=== PATIENT | female | born 1975 | race Two or more races ===

== ENCOUNTER 2025-03-12 17:17 | Emergency (ER) | payer MEDICAID, OTHER ==
[~2025-03-12] VITALS: Ht 154.9 cm; Wt 92.0 kg
--- NOTE | 2025-03-12 18:55 | ED.PDOC ---
Anastasia. trauma (HPI) HPI Comments 50 year old female presents to the ED with a chief complaint of head injury s/p fall onset last night. Patient was on the 4th step of a 6 ft ladder, when she slipped, fell and landed on her back. Shortly after falling patient began experiencing dizziness, nausea/vomiting, neck pain, upper back pain, LT shoulder and LT wrist pain. Patient took Tylenol for pain with no improvement of symptoms. Rates headache 10/10, experienced an episode of nausea/vomiting upon ED arrival. Denies any LOC, chest pain, shortness of breath, diarrhea, abdominal pain, blurry vision. No other symptoms or modifying factors present at this time. Chief Complaint: Head Injury Time Seen by MD: 18:35 Primary Care Provider: PRUDENCE Reviewed notes: Medications, Allergies Allergies: Coded Allergies: NO KNOWN ALLERGIES (Unverified , 03/12/25) Information Source: Patient Mode of Arrival: Ambulatory Severity: Moderate Timing: Days Duration: Since onset Prehospital treatment: Pain Meds Location: Back, Neck, (L) Shoulder, (L) Wrist Location of laceration: None Mechanism: Fall Associated signs and symtoms: Headache Past Medical History PAST MEDICAL HISTORY: Denies Surgical History: Denies all surgeries ICU REGISTERED NURSE History: No Pertinent ICU REGISTERED NURSE History Family History Family History: Reviewed,noncontributory to illness, No family hx of Cancer, No family hx of DM, No family hx of Heart avelino, No family hx of HTN, No family hx ofKidney avelino, No family hx of Liver avelino, No family hx of Lung avelino, No family hx of Stroke Social History Smoker: Non-Smoker Alcohol: Denies ETOH Use Drugs: Denies Drug Use Lives In: Home Constitutional: denies: chills, diaphoresis, fatigue, fever, malaise, sweats, weakness, others EENTM: denies: blurred vision, double vision, ear bleeding, ear discharge, ear drainage, ear pain, ear ringing, eye pain, eye redness, hearing loss, mouth pain, mouth swelling, nasal discharge, nose bleeding, nose congestion, nose pain, photophobia, tearing, throat pain, throat swelling, voice changes, others Respiratory: denies: cough, hemoptysis, orthopnea, SOB at rest, shortness of breath, SOB with excertion, stridor, wheezing, others Cardiovascular: denies: chest pain, dizzy spells, diaphoresis, Dyspnea on exertion, edema, irregular heart beat, left arm pain, lightheadedness, palpitations, PND, syncope, others Gastrointestinal: reports: nausea, vomiting; denies: abdomen distended, abdominal pain, blood streaked bowels, constipated, diarrhea, dysphagia, difficulty swallowing, hematemesis, melena, poor appetite, poor fluid intake, rectal bleeding, rectal pain, others Genitourinary: denies: abnormal vagina bleeding, burning, dyspareunia, dysuria, flank pain, frequency, hematuria, incontinence, pain, , vagina discharge, urgency, others Neurological: reports: dizziness, headache; denies: fainting, left sided numbness, left sided weakness, numbness, paresthesia, pre-existing deficit, right sided numbness, right sided weakness, seizure, speech problems, tingling, tremors, weakness, others Musculoskeletal: reports: back pain, neck pain, others (LT wrist pain); denies: gout, joint pain, joint swelling, muscle pain, muscle stiffness Integumetry: denies: bruises, change in color, change in hair/nails, dryness, laceration, lesions, lumps, rash, wounds, others Allergic/Immunocompromised: denies: Difficulty Healing, Frequent Infections, Hives, Itching, others Hematologic/Lymphatic: denies: anemia, blood clots, easy bleeding, easy bruising, swollen glands, others Endocrine: denies: excessive hunger, excessive sweating, excessive thirst, excessive urination, flushing, intolerance to cold, intolerance to heat, unexplained weight gain, unexplained weight loss, others Psychiatric: denies: anxiety, bipolar disorder, depression, hopeless, panic disorder, schizophrenia, sleepless, suicidal, others All Other Systems: Reviewed and Negative Physical Exam General Appearance: No Apparent Distress, Normal HEENT: Normal ENT Inspection, Pharynx Normal, TMs Normal Neck: Full Range of Motion, Non-Tender, Normal, Normal Inspection Respiratory: Chest Non-Tender, Lungs Clear, No Accessory Muscle Use, No Respiratory Distress, Normal Breath Sounds Cardiovascular: No Edema, No JVD, No Murmur, No Gallop, Normal Peripheral Pulses, Regular Rate/Rhythm Breast Exam: Deferred Gastrointestinal: No Organomegaly, Non Tender, No Pulsatile Mass, Normal Bowel Sounds, Soft Genitalia: Deferred Pelvic: Deferred Rectal: Deferred Extremities: No calf tenderness, Normal capillary refill, Normal inspection, Normal range of motion, Non-tender, No pedal edema Musculoskeletal : Apperance: Normal Neurologic: Alert, stove mechanic II-XII nml as Tested, No Motor Deficits, Normal Affect, Normal Mood, No Sensory Deficits Cerebellar Function: Normal Reflexes: Normal Skin: Dry, Normal Color, Warm Lymphatic: No Adenopathy Was a procedure done? Was a procedure done?: No X-Ray, Labs, Meds, VS Vital Signs Date Time Temp Pulse Resp B/P (MAP) Pulse Ox O2 Delivery O2 Flow Rate FiO2 03/12/25 17:47 98.0 81 16 119/74 (89) 98 98.0 [place] [address] Ph: [phone] DIAGNOSTIC IMAGING Diagnostic Imaging Report : [id number] Signed PATIENT: CHINTAN CARPENTERCAITT: [id number] UNIT: [id number] : 1975 LOC: ER ROOM / BED: / AGE / SEX: 50 / F ADM STATUS: REG ER SERVICE 14 ORDERING PHYSICIAN: DHIRAJ MÉNDEZ MD PROCEDURE(s): LWRI - L WRIST 3+ VIEW XRAY REASON: fall off ladder, pain ORDER NUMBER(s): [id number], ACCESSION NUMBER(s): [id number] EXAM: XY L WRIST 3+ VIEW XRAY HISTORY: fall off ladder, pain COMPARISON: None TECHNIQUE: Four views of the left wrist were performed. FINDINGS: No acute fracture or dislocation are identified about the left wrist. No significant degenerative changes. IMPRESSION: 1. No acute fracture of the left wrist. ATED BY: ADRIANO ASH MD DICTATED DATE/TIME: 03/12/251952 SIGNED BY: ADRIANO ASH MD SIGNED DATE/TIME: 03/12/251952 CC: [address] [address] Ph: [phone] DIAGNOSTIC IMAGING Diagnostic Imaging Report : [id number] Signed PATIENT: CHINTAN CARPENTERCAITT: [id number] UNIT: [id number] : 1975 LOC: ER ROOM / BED: / AGE / SEX: 50 / F ADM STATUS: REG ER SERVICE 14 ORDERING PHYSICIAN: DHIRAJ MÉNDEZ MD PROCEDURE(s): LSHD2 - L SHOULDER 2+ VIEW XRAY REASON: fall off ladder, pain ORDER NUMBER(s): [id number], ACCESSION NUMBER(s): [id number] EXAMINATIONS: 3 views of the left shoulder CLINICAL HISTORY: fall off ladder, pain COMPARISON: None Findings and impression: No grossly displaced fractures or dislocations are evident on the provided vie ws. Glenohumeral articulation appears relatively intact. ATED BY: CARMINE DUVALL MD DICTATED DATE/TIME: 03/12/251955 SIGNED BY: CARMINE DUVALL MD SIGNED DATE/TIME: 03/12/251955 CC: [place] [address] Ph: [phone] DIAGNOSTIC IMAGING Diagnostic Imaging Report : [id number] Signed PATIENT: CHINTAN CARPENTERCCT: [id number] UNIT: [id number] : 1975 LOC: ER ROOM / BED: / AGE / SEX: 50 / F ADM STATUS: REG ER SERVICE 14 ORDERING PHYSICIAN: DHIRAJ MÉNDEZ MD PROCEDURE(s): HWOCT - HEAD WITHOUT CONTRAST REASON: fall off ladder / pain ORDER NUMBER(s): [id number], ACCESSION NUMBER(s): [id number] CT HEAD WITHOUT CONTRAST INDICATION: fall off ladder / pain : 50 old Female fall off ladder / pain EXAM DATE: 03/12/2025 07:42 PM COMPARISON: None RADIATION DOSE: CTDIvol: 55.72 mGy, DLP: 1696.68 mGy*cm PROCEDURE: CT scans of the head were obtained from the vertex to the skull base. Sagittal and coronal reconstructions were provided. All CT scans at this medical facility are performed using dose modulation t echniques as appropriate to a performed exam including the following: Automated exposure control was utilized; adjustment of the MA and/or KV according to patient size; and use of iterative reconstruction technique. FINDINGS:: No evidence for atrophy. Pierce-white matter differentiation is normal there is no evidence for stroke or intracranial hemorrhage or shear injury Hippocampal structures are symmetric midline structures are normal. Pituitary Paranasal sinuses mastoid air cells internal auditory canals and middle ears are unremarkable. Calvarium is intact. IMPRESSION: 1. Generally unremarkable study ATED BY: ADRIANO ASH MD DICTATED DATE/TIME: 03/12/252027 SIGNED BY: ADRIANO ASH MD SIGNED DATE/TIME: 03/12/252027 CC: [place] [address] Ph: [phone] DIAGNOSTIC IMAGING Diagnostic Imaging Report : [id number] Signed PATIENT: CHINTAN CARPENTERCCT: [id number] UNIT: [id number] : 1975 LOC: ER ROOM / BED: / AGE / SEX: 50 / F ADM STATUS: REG ER SERVICE 14 ORDERING PHYSICIAN: DHIRAJ MÉNDEZ MD PROCEDURE(s): CS2 - CERVICAL WITHOUT CONTRAST REASON: fall off ladder, pain ORDER NUMBER(s): [id number], ACCESSION NUMBER(s): [id number] EXAM: CT CERVICAL WITHOUT CONTRAST INDICATION: fall off ladder, pain EXAM DATE: 03/12/2025 07:42 PM COMPARISON: None TECHNIQUE: Multiple axial CT images of the cervical spine were obtained using bone algorithm. Axial and coronal reformatting was done. Bone and soft tissue windows were reviewed. Radiation Dose Information: CT Dose: CTDI volume is 24 mGy. Dose-length product is 1697 mGy*cm FINDINGS: The cervical alignment is intact. No acute cervical spine fracture is identifie d. The vertebral body heights are intact. No suspicious osseous lesions are identified. Moderate degenerative changes throughout the cervical spine. There is no prevertebral soft tissue swelling. IMPRESSION: 1. No evidence of acute cervical spine fracture or traumatic malalignment. 2. Moderate degenerative changes throughout the cervical spine. 3. All CT scans at this medical facility are performed using dose modulation techniques as appropriate to a performed exam including the following: Automated exposure control was utilized; adjustment of the MA and/or KV according to patient size; and use of iterative reconstruction technique. ATED BY: HALIMA BRAY MD DICTATED DATE/TIME: 03/12/252044 SIGNED BY: HALIMA BRAY MD SIGNED DATE/TIME: 03/12/252044 CC: Time of 1ST Reevaluation: 19:05 Reevaluation 1ST: Unchanged Patient Education/Counseling: Diagnosis, Treatment, Prognosis Family Education/Counseling: No Family Present Additional Information The following tests were ordered, and results were reviewed by me: CT HEAD WO CONTRAST, CT CERVICAL WO CONTRAST, XY L SHOULDER 2+ VIEW, XY L WRIST 3+ VIEW I reviewed and agreed with the following test results read by other providers: CT HEAD WO CONTRAST, CT CERVICAL WO CONTRAST, XY L SHOULDER 2+ VIEW, XY L WRIST 3+ VIEW I discussed treatment and results with medical personnel and: Patient Comprehensive systems review obtained and negative except for what is stated in the HPI. Departure 1 Departure Time of Disposition: 21:01 Impression: Primary Impression: Cervical sprain Additional Impressions: Head injury, acute Sprain of left shoulder Sprain of left wrist Disposition: 01 HOME / SELF CARE / HOMELESS Condition: Stable Discharged With: Self Critical Care Note Critical Care Time?: No Stability Stability form required: No I personally scribed for DHIRAJ MÉNDEZ MD ([email or web address]) on 03/12/25 at 18:55. Electronically submitted by Lay Damon ([email or web address]). I personally scribed for DHIRAJ MÉNDEZ MD ([email or web address]) on 03/12/25 at 19:10. Electronically submitted by Lay Damon ([email or web address]). I personally scribed for DHIRAJ MÉNDEZ MD ([email or web address]) on 03/12/25 at 20:12. Electronically submitted by Lay Damon ([email or web address]). I personally scribed for DHIRAJ MÉNDEZ MD ([email or web address]) on 03/12/25 at 20:50. Electronically submitted by Lay Damon ([email or web address]). I personally scribed for DHIRAJ MÉNDEZ MD ([email or web address]) on 03/12/25 at 20:51. Electronically submitted by Lay Damon ([email or web address]). DHIRAJ MÉNDEZ MD Mar 12, 2025 18:55
--- NOTE | 2025-03-12 19:55 | DVH ---
EXAM: XY L WRIST 3+ VIEW XRAY HISTORY: fall off ladder, pain COMPARISON: None TECHNIQUE: Four views of the left wrist were performed. FINDINGS: No acute fracture or dislocation are identified about the left wrist. No significant degenerative ch anges. IMPRESSION: 1. No acute fracture of the left wrist.
--- NOTE | 2025-03-12 19:58 | DVH ---
EXAMINATIONS: 3 views of the left shoulder CLINICAL HISTORY: fall off ladder, pain COMPARISON: None Findings and impression: No grossly displaced fractures or dislocations are evident on the provided views. Glenohumeral articu lation appears relatively intact.
--- NOTE | 2025-03-12 20:31 | DVH ---
CT HEAD WITHOUT CONTRAST INDICATION: fall off ladder / pain : 50 old Female fall off ladder / pain EXAM DATE: 03/12/2025 07:42 PM COMPARISON: None RADIATION DOSE: CTDIvol: 55.72 mGy, DLP: 1696.68 mGy*cm PROCEDURE: CT scans of the head were obtained from the vertex to the skull base. Sagittal and coronal reconstructions were provided. All CT scans at this medical facility are performed using dose modulation techniques as appropriate t o a performed exam including the following: Automated exposure control was utilized; adjustment of th e MA and/or KV according to patient size; and use of iterative reconstruction technique. FINDINGS:: No evidence for atrophy. Pierce-white matter differentiation is normal there is no evidence for stroke or intracranial hemorrhage or shear injury Hippocampal structures are symmetric midline structures are normal. Pituitary Paranasal sinuses mastoid air cells internal auditory canals and middle ears are unremarkable. Calvar ium is intact. IMPRESSION: 1. Generally unremarkable study
--- NOTE | 2025-03-12 20:47 | DVH ---
EXAM: CT CERVICAL WITHOUT CONTRAST INDICATION: fall off ladder, pain EXAM DATE: 03/12/2025 07:42 PM COMPARISON: None TECHNIQUE: Multiple axial CT images of the cervical spine were obtained using bone algorithm. Axial a nd coronal reformatting was done. Bone and soft tissue windows were reviewed. Radiation Dose Information: CT Dose: CTDI volume is 24 mGy. Dose-length product is 1697 mGy*cm FINDINGS: The cervical alignment is intact. No acute cervical spine fracture is identified. The vertebral body heights are intact. No suspicious osseous lesions are identified. Moderate degenerative changes throughout the cervical spine. There is no prevertebral soft tissue swelling. IMPRESSION: 1. No evidence of acute cervical spine fracture or traumatic malalignment. 2. Moderate degenerative changes throughout the cervical spine. 3. All CT scans at this medical facility are performed using dose modulation techniques as appropriat e to a performed exam including the following: Automated exposure control was utilized; adjustment of the MA and/or KV according to patient size; and use of iterative reconstruction technique.
[2025-03-12] MEDS: HYDROcodone-ACET 10/325MG TAB PO ONE (21:12)
[2025-03-12 21:17] VITALS: BP 125/89; PULSE 82; RESP 18; TEMP 98.2; O2SAT 98
== END 2025-03-12 21:16 | disposition home or self-care (01) ==
LOC: ER 17:17
DX: S13.4XXA Sprain of ligaments of cervical spine, initial encounter (principal); S63.502A Unspecified sprain of left wrist, initial encounter; S09.8XXA Other specified injuries of head, initial encounter; S43.402A Unspecified sprain of left shoulder joint, initial encounter; W11.XXXA Fall on and from ladder, initial encounter; Y93.89 Activity, other specified; Y92.89 Other specified places as the place of occurrence of the external cause; Y99.8 Other external cause status
CPT/HCPCS: 70450; 72125; 73030; 73110

== ENCOUNTER 2025-09-20 21:54 | Emergency (ER) | payer MEDICAID ==
[~2025-09-20] VITALS: Ht 154.9 cm; Wt 97.5 kg
--- NOTE | 2025-09-20 22:54 | ED.PDOC ---
History of Present Illness HPI Comments 50 y/o morbidly obese F presents with c/c of right foot pain x2 days. Patient reports on onset of pain following a 'pop' sensation she felt in her right foot after walking 2x days ago. No reported recent trauma or injuries. Pertinent history of previous right foot fractures with surgical interventions. Patient also endorses on having left shoulder pain of unknown origin. History blood clots in left arm; off blood thinners she was placed for it for 2x years. No further acute symptoms reported. Chief Complaint: Lower Extremity Time Seen by MD: 22:03 Primary Care Provider: PRUDENCE Reviewed Notes: Nurses Notes, Medications, Allergies Allergies: Coded Allergies: NO KNOWN ALLERGIES (Unverified , 03/12/25) Information Source: Patient Mode of Arrival: Ambulatory Severity: Moderate Timing: Days Duration: Since onset Prehospital treatment: None Past Medical History PAST MEDICAL HISTORY: Denies Surgical History: Denies all surgeries DEBRIDGING MACHINE OPERATOR History: No Pertinent DEBRIDGING MACHINE OPERATOR History Family History Family History: Reviewed,noncontributory to illness, No family hx of Cancer, No family hx of DM, No family hx of Heart avelino, No family hx of HTN, No family hx ofKidney avelino, No family hx of Liver avelino, No family hx of Lung avelino, No family hx of Stroke Social History Smoker: Non-Smoker Alcohol: Denies ETOH Use Drugs: Denies Drug Use Lives In: Home All Other Systems: Reviewed and Negative (Comprehensive review of systems are negative unless stated in HPI) Physical Exam General Appearance: No Apparent Distress, Obese HEENT: Pharynx Normal Neck: Full Range of Motion, Non-Tender Respiratory: Lungs Clear, No Respiratory Distress, Normal Breath Sounds Cardiovascular: No Murmur, Normal Peripheral Pulses, Regular Rate/Rhythm Breast Exam: Deferred Gastrointestinal: Non Tender, Soft Genitalia: Deferred Pelvic: Deferred Rectal: Deferred Extremities: Normal capillary refill, Normal range of motion, No pedal edema Musculoskeletal : Location: Right Extremity Location: Foot (TENDERNESS TRACE EDEMA NOTED OVER DORSUM ASPECT OF RIGHT FOOT POSITIVE PEDAL PULSE STRENGTH SENSORY MOTION INTACT. LEFT SHOULDER WITH MODERATE DISCOMFORT ON PASSIVE RANGE OF MOTION TENDERNESS OVER TIRE SHOP SHOULDER GIRDLE STRENGTH SENSORY MOTION INTACT.) Apperance: Normal Neurologic: Alert, silk top hat body maker II-XII nml as Tested, No Motor Deficits, Normal Affect, Normal Mood, No Sensory Deficits Cerebellar Function: Normal Reflexes: NOT DONE Skin: Dry, Normal Color, Warm Lymphatic: No Adenopathy Was a procedure done? Was a procedure done?: No Differential Dx Considerations may include: fractures, contusions, sprain, musculoskeletal pain, among others X-Ray, Labs, Meds, VS Vital Signs Date Time Temp Pulse Resp B/P (MAP) Pulse Ox O2 Delivery O2 Flow Rate FiO2 09/21/25 00:14 89 19 97 Room Air 09/21/25 00:14 98.1 89 19 106/71 (83) 97 98.1 09/20/25 21:56 97.8 95 16 143/81 97 97.8 Current Medications Medications (Trade) Dose Ordered Sig/Sheldon Route Start Time Stop Time Status Last Admin Acetaminophen/ Hydrocodone Bitart ([place] 5/325MG Tab) 1 tab ONCE ONCE PO 09/21/25 00:00 09/21/25 00:01 DC 09/21/25 00:14 X-Ray, Labs, Meds, VS Comment FINDINGS: No osseous or joint abnormality identified with no fracture or dislocation. Mild joint space narrowing in 1st MTP joint; the remainder of the joints appear unremarkable. Single screw noted in the fibular head. Very small calcaneal spur. IMPRESSION: No evidence of fracture or dislocation PATIENT GIVEN NORCO 5 MG REPORTS IMPROVEMENT IN PAIN REQUESTING DISCHARGE AT THIS TIME. SCRIPT TRIAL OF MUSCLE RELAXER AT SLEEP FOR THE LEFT SHOULDER PAIN ADVISED TO FOLLOW UP WITH AND MAKE REFERRAL WITH PODIATRY CONSIDER REMOVAL OF THE HARDWARE SINCE IT IS LIKELY CAUSING PATIENT'S PAIN. ADVISED TO FOLLOW UP WITH HER PCP IF LEFT SHOULDER PAIN CONTINUES RECOMMEND OUTPATIENT MRI. NO NOTED FRACTURES DISLOCATIONS OR OSSEOUS LESIONS. ADVISED ON RICE. ADVISED ON ER RETURN PRECAUTIONS PATIENT INDICATES UNDERSTANDING AGREES WITH DISCHARGE PLAN OF CARE. Images Reviewed?: Images reviewed and evaluated by me Time of 1ST Reevaluation: 22:30 Reevaluation 1ST: Unchanged Time of 2ND Reevaluation: 00:07 Reevaluation 2ND: Improved Patient Education/Counseling: Diagnosis, Treatment, Need For Follow Up Family Education/Counseling: No Family Present SEPSIS Sepsis Screen Date sepsis recognized/suspect: Sep 20, 2025 Time Sepsis recognized/suspect: 2157 Recent Procedure: No On Antibiotic Therapy: No Respiratory Rate >20: No Heart Rate >90: No Temp<36 C (96.8 F) or >38.3 C: No SBP <90 or MAP <65 mmHG: No New Acute Mental Status Change: No Is the patient on CPAP, BIPAP,: No Physician Orders R Foot 3 View Xray (09/20/25 22:03) L Shoulder 2+ View Xray (09/20/25 22:03) Vital Signs Date Time Temp Pulse Resp B/P (MAP) Pulse Ox O2 Delivery O2 Flow Rate FiO2 09/21/25 00:14 89 19 97 Room Air 09/21/25 00:14 98.1 89 19 106/71 (83) 97 98.1 09/20/25 21:56 97.8 95 16 143/81 97 97.8 Medications Medications Dose Ordered Sig/Sheldon Route Start Time Stop Time Status Last Admin Dose Admin Acetaminophen/ Hydrocodone Bitart 1 tab ONCE ONCE PO 09/21/25 00:00 09/21/25 00:01 DC 09/21/25 00:14 Departure 1 Departure Time of Disposition: 00:07 Impression: Primary Impression: Foot pain Qualified Codes: M79.671 - Pain in right foot Additional Impression: Left shoulder pain Qualified Codes: M25.512 - Pain in left shoulder; G89.29 - Other chronic pain Disposition: 01 HOME / SELF CARE / HOMELESS Condition: Stable e-Prescriptions Methylprednisolone (Medrol Dosepak) 4 Mg Arsen 4 MG PO UD for 6 Days, #21 TAB UAD Prov: ZION PAYTON 09/21/25 Cyclobenzaprine Hcl (Cyclobenzaprine Hcl) 10 Mg Tab 10 MG PO HS PRN for 7 Days, #7 TAB Prov: ZION PAYTONP 09/21/25 Discharged With: Self Critical Care Note Critical Care Time?: No Stability Stability form required: No Heart Score Heart Score: Heart Score Response (Comments) Value History N/A 0 EKG N/A 0 Age N/A 0 Risk Factors N/A 0 Troponin N/A 0 Total 0 I personally scribed for ER ([email or web address]) on 09/20/25 at 22:54. Electronically submitted by Gage Arteaga ([email or web address]). ER Sep 20, 2025 22:54 ZION PAYTON [facility] Sep 21, 2025 00:07
--- NOTE | 2025-09-20 22:56 | DVH ---
CLINICAL INDICATION: Nose injury/pain TECHNIQUE: XY R FOOT 3 VIEW XRAY Comparison: None FINDINGS: No osseous or joint abnormality identified with no fracture or dislocation. Mild joint space narrowin g in 1st MTP joint; the remainder of the joints appear unremarkable. Single screw noted in the fibula r head. Very small calcaneal spur. IMPRESSION: No evidence of fracture or dislocation.
--- NOTE | 2025-09-20 22:58 | DVH ---
CLINICAL INDICATION: Pain TECHNIQUE: XY L SHOULDER 2+ VIEW XRAY Comparison: None FINDINGS: No osseous or joint abnormality identified with no fracture or dislocation. Joint spaces are normal. Soft tissues appear unremarkable. IMPRESSION: No evidence of fracture or dislocation.
[2025-09-21 00:14] VITALS: BP 106/71; PULSE 89; RESP 19; TEMP 98.1; O2SAT 97
[2025-09-21] MEDS: HYDROcodone-ACET 5/325MG TAB PO ONE (00:14)
[2025-09-21] MEDS ORDERED: METH4PAK PO (01:00)
[2025-09-21] MEDS ORDERED: CYCL-839 PO (01:00)
== END 2025-09-21 00:42 | disposition home or self-care (01) ==
LOC: ER 21:54
DX: M79.671 Pain in right foot (principal); M25.512 Pain in left shoulder; Z79.899 Other long term (current) drug therapy
CPT/HCPCS: 73030; 73630